=== PATIENT | female | born 1970 | race Two or more races ===

== ENCOUNTER 2023-02-06 08:42 | Day surgery (SDC) | payer MEDICARE ==
[~2023-02-06 08:42] MED LIST: Sodium Chloride 0.9% 10 ML Syringe FLUSH PRN
== END 2023-02-06 09:46 | disposition home or self-care (01) ==
LOC: JP.SDS 08:42 → EDBD 09:30 → JP.SDS 09:46
PROVIDERS: ATTEND Ophthalmology
DX: E11.36 Type 2 diabetes mellitus with diabetic cataract (principal); H26.9 Unspecified cataract; K21.9 Gastro-esophageal reflux disease without esophagitis; E66.9 Obesity, unspecified; Z88.5 Allergy status to narcotic agent
CPT/HCPCS: 66984; J3490

== ENCOUNTER 2023-02-27 08:54 | Day surgery (SDC) | payer MEDICARE ==
[2023-02-27] MEDS ORDERED: Sodium Chloride 0.9% 10 ML Syringe FLUSH PRN (09:00)
== END 2023-02-27 10:20 | disposition home or self-care (01) ==
LOC: EDBD → JP.SDS 08:54 → MERGE 09:50 → JP.SDS 10:20
PROVIDERS: ATTEND Ophthalmology
DX: H26.9 Unspecified cataract (principal); Z88.5 Allergy status to narcotic agent; Z79.899 Other long term (current) drug therapy
CPT/HCPCS: 66984; J3490

== ENCOUNTER 2024-07-05 10:47 | Emergency (ER) | payer MEDICARE ==
[2024-07-05 11:11] LABS: BASOPHILS ABSOLUTE AUTO 0.03 K/uL (0.00-0.10); BASOPHILS PERCENT AUTO 0.4 % (0.1-1.3); EOSINOPHILS ABSOLUTE AUTO 0.23 K/uL (0.00-0.40); EOSINOPHILS PERCENT AUTO 2.8 % (0.0-5.4); HEMATOCRIT 36.9 % (34.3-46.0); HEMOGLOBIN 12.4 g/dL (11.2-15.5); IMMATURE GRAN ABSOLUTE AUTO 0.04 K/uL (0.00-0.23); IMMATURE GRAN PERCENT AUTO 0.5 % (0.0-0.7); LYMPHOCYTES ABSOLUTE AUTO 1.73 K/uL (0.8-3.3); LYMPHOCYTES PERCENT AUTO 21.1 % (11.4-47.7); MEAN CORPUSCULAR HEMOGLOBIN 27.3 pg (31.6-35.5); MEAN CORPUSCULAR HGB CONC 33.6 g/dL (31.6-35.5); MEAN CORPUSCULAR VOLUME 81.3 fL (81.4-99.0); MONOCYTES ABSOLUTE AUTO 0.39 K/uL (0.20-0.90); MONOCYTES PERCENT AUTO 4.8 % (3.3-12.6); NEUTROPHILS ABSOLUTE AUTO 5.77 K/uL (1.0-7.6); NEUTROPHILS PERCENT AUTO 70.4 % (40.0-78.1); PLATELET COUNT,PLT 309 K/uL (130-375); RED BLOOD CELL COUNT 4.54 M/uL (3.77-5.24); WHITE BLOOD CELL COUNT,WBC 8.2 K/uL (3.2-11.0)
[2024-07-05 11:26] LABS: ANION GAP 11.3 mmol/L (5.0-14.0); CALCIUM 9.3 mg/dL (8.5-10.1); CREATININE 0.7 mg/dL (0.6-1.0); EST CRCL DRUG DOSING (CG) 77.77 mL/min; POTASSIUM,K 4.3 mmol/L (3.6-5.2)
== END 2024-07-05 12:04 | disposition home or self-care (01) ==
LOC: JP.ED 10:47
DX: E11.649 Type 2 diabetes mellitus with hypoglycemia without coma (principal); I10 Essential (primary) hypertension; E78.00 Pure hypercholesterolemia, unspecified; E66.9 Obesity, unspecified; E11.9 Type 2 diabetes mellitus without complications; Z68.35 Body mass index [BMI] 35.0-35.9, adult; Z88.8 Allergy status to other drugs, medicaments and biological substances; Z79.82 Long term (current) use of aspirin; Z79.84 Long term (current) use of oral hypoglycemic drugs; Z79.899 Other long term (current) drug therapy; Z90.49 Acquired absence of other specified parts of digestive tract; Z90.710 Acquired absence of both cervix and uterus
CPT/HCPCS: 36415; 80048; 85025; 99285

== ENCOUNTER 2025-07-05 16:08 | Emergency (ER) | payer MEDICARE | END 2025-07-05 19:45 | disposition home or self-care (01) | LOC: JP.ED 16:08 | DX: J06.9 Acute upper respiratory infection, unspecified (principal); I10 Essential (primary) hypertension; E78.00 Pure hypercholesterolemia, unspecified; E11.9 Type 2 diabetes mellitus without complications; E66.9 Obesity, unspecified; Z88.8 Allergy status to other drugs, medicaments and biological substances; Z88.5 Allergy status to narcotic agent; Z79.84 Long term (current) use of oral hypoglycemic drugs; Z79.82 Long term (current) use of aspirin; Z79.4 Long term (current) use of insulin; Z90.49 Acquired absence of other specified parts of digestive tract | CPT/HCPCS: 87428-QW; 87651; 99283 ==